=== PATIENT | male | born 1995 | race Caucasian/White ===

== ENCOUNTER → 2021-10-14 13:42 | Outpatient (BNVA) | payer MEDICAID, SELFPAY | PROVIDERS: Visit Provider Nurse Practitioner Family | DX: M25.512 Pain in left shoulder (principal); G89.29 Other chronic pain; E78.5 Hyperlipidemia, unspecified | CPT/HCPCS: 73030 ==

== ENCOUNTER 2023-08-06 13:06 | Emergency (ER) | payer MEDICAID, SELFPAY ==
[2023-08-06 13:07] VITALS: BMI 29.8
[2023-08-06 13:10] VITALS: BP 151/89; PULSE 78; RESP 16; TEMP 36.5; O2SAT 99
--- NOTE | 2023-08-06 14:00 | W.ED.EXTPRO ---
HPI - Extremity Problem General: Chief complaint: Extremity Injury, Upper Stated complaint: LEFT SHOULDER PAIN S/P FALL Time Seen by Provider: 08/06/23 13:16 Source: patient and family Mode of arrival: EMS Limitations: no limitations History of Present Illness: This patient fell on his left arm. He apparently was attempting to break up 2 dogs who were fighting and had dog in each arm and then stumbled and fell landing on his left arm and shoulder. He states it hurts to move his arm in any direction. There was no head injury and no other injury claim by the patient at this time. He is right-handed. Otherwise in good health. MD Complaint: extremity pain Location: left and upper extremity Associated symptoms: Reports no associated symptoms; Deny chest pain, fever(s) or rash Review of Systems Const: Denies: fever(s) or chills ENMT: Denies: throat pain or odynophagia Card: Denies: chest pain, palpitations, syncope or pre-syncope Resp: Denies: dyspnea, productive cough or non-productive cough GI: Denies: abdominal pain, nausea or vomiting Musc: Reports: extremity pain; Denies: neck pain or back pain Skin/Breast: Denies: rash Neuro: Denies: headache(s), numbness in extremities or weakness in extremities PFSH ED PFSH: Social History Smoking and tobacco/nicotine status: never used tobacco/nicotine Second hand smoke exposure: No Alcohol intake: never Substance/Drug Use: never Adopted: No Caregiver/support person: No Lives independently: Yes Household members: spouse Housing: House Marital status: Highest education level completed: High School Graduate service: No Current occupational status: employed Physical Exam Narrative: EXAM NARRATIVE: Patient's appears to be slightly uncomfortable but is cooperative and answers questions in an appropriate fashion. Const: COMMON NORMALS: average body habitus, patient oriented x3 and alert GENERAL APPEARANCE: cooperative HENMT: COMMON NORMALS: normocephalic, atraumatic and Normal nasal mucous membranes and turbinates present HEAD & SCALP: normocephalic and atraumatic NOSE: Normal nasal mucous membranes and turbinates present Eye: COMMON NORMALS: Equal, round and reactive pupils present, EOMs intact bilaterally and conjunctivae normal CONJUNCTIVA: Yes conjunctivae normal PUPIL: Yes Equal, round and reactive pupils present Neck/C-Spine: COMMON NORMALS: full ROM CERVICAL SPINE: Yes cervical ROM normal, No Cervical spine tenderness, No step off deformity, No Paracervical muscle tenderness and No Paracervical spasm Chest: COMMONS NORMALS: normal inspection of the chest Resp: COMMON NORMALS: normal respiratory effort, No retractions and clear to auscultation bilaterally EFFORT & INSPECTION: Yes able to speak in complete sentences AUSCULTATION: clear to auscultation bilaterally Cardio: COMMON NORMALS: regular rate, regular rhythm and Peripheral pulses 2+ throughout RATE: regular rate RHYTHM: regular rhythm PERIPHERAL PULSES: Peripheral pulses 2+ throughout : COMMON NORMALS: Yes no CVA tenderness BLADDER/KIDNEY EXAM: Yes no CVA tenderness Back/Pelvis: COMMON NORMALS: no CVA tenderness, thoracic and lumbar spine normal to inspection, no thoracic nor lumbar tenderness and thoraco-lumbar ROM normal Extremity: LEFT UPPER EXTREMITY: Yes shoulder joint and Yes upper arm OTHER: Patient maintains his left arm and shoulder and internal rotated abducted position of comfort. Palpation reveals some step-off at the lateral shoulder over the glenohumeral region there is no deformity distally and he is neurovascular intact distally. There is no anesthesia over the lateral shoulder or humerus. EXTREMITY IMAGE (FRONT): 1. Area of tenderness no deformity. No ecchymosis no skin abrasions Neuro: COMMON NORMALS: patient oriented x3, no focal motor deficits and no sensory deficits noted SENSORIUM/ORIENTATION: Yes alert Psych: COMMON NORMALS: mental status grossly normal Skin: COMMON NORMALS: no rashes or lesions noted, no wounds and turgor normal GENERAL SKIN EXAM: no rashes or lesions noted and turgor normal Procedures Jaw Reduction Time Out Performed: Yes Pre-Treatment Medications Used: opioids Technique used: other (External rotation and adduction) Reduction successful: Yes Patient Tolerated Procedure: well Complications: none Additional Comments: Postreduction x-ray revealed no evidence of occult fracture Hill-Sachs deformity etc. Procedural Sedation Indication: fracture/dislocation reduction Presedation Evaluation: Patient has no history of reactive airway disease or other cardiopulmonary conditions. ASA Class: I Preparation: cardiac rehabilitation specialist applied, pulse oximeter and supplemental O2 applied IV Propofol dose (mg): 42.5 Patient Tolerated Procedure: well Complications: none Additional Comments: Patient recovered back to presedation level of consciousness very quickly. Course Reevaluation(s): Reevaluation #1: Patient had an anterior shoulder dislocation both clinically and radiographically. The patient underwent a procedural sedation with reduction of his left shoulder. Postreduction films showed anatomic reduction. He clinically was stable. There was some question on initial shoulder films about inferior glenoid Bankart lesion. Postreduction film did not reveal any concerns by me however we will schedule a follow-up with orthopedics for repeat films and review. Time: 16:08 Vital Signs: Vital signs: Vital Signs Temperature 97.7 F 08/06/23 13:10 Pulse Rate 79 08/06/23 15:44 Respiratory Rate 18 08/06/23 15:44 Blood Pressure 119/65 08/06/23 15:44 Pulse Oximetry 98 08/06/23 15:44 Oxygen Delivery Me thod Nasal Cannula 08/06/23 15:33 MDM - Extremity (Nontraumatic) Medical Decision Making This patient presents to the emergency department via EMS after falling on his left side and injuring his left shoulder. No other injuries to include head trauma etc. He had pain with movement of his left arm above resting position. Clinical examination revealed tenderness over the anterior shoulder with some step-off on the left glenohumeral region of the lateral shoulder. No deformity of the distal humerus forearm or hand were noted. No cervical spine tenderness no evidence of other injury. Radiographs confirmed an anterior dislocation without any evidence of fracture initially on the left humerus. Patient underwent procedural sedation and using external rotation and some lateral countertraction easily reduced to an anatomical position. There was some question on 1 view of the prereduction films about a Bankart lesion however postreduction films did not reveal any evidence of inferior glenoid fracture to my eye by single view but the patient will be followed up by orthopedics for review and further care. He has been placed in a sling with post reduction instructions given to both he and spouse. Stable at this time. Lab Data I reviewed the patient's lab results. Radiology Impressions Humerus X-Ray 08/06/23 14:03 IMPRESSION: 1. No visible fracture. 2. Anterior inferior shoulder dislocation. XR interpretation done by ED provider, pending radiology final review Discharge Plan Discharge Patient Disposition: Home Clinical Impression: Anterior dislocation of left shoulder Qualifiers: Encounter type: initial encounter Qualified Code(s): S43.015A - Anterior dislocation of left humerus, initial encounter Condition: Stable Prescriptions: New hydrocodone-acetaminophen 7.5-325 mg tablet 1 tab PO TID PRN (Reason: pain) Qty: 14 0RF No Action Allergy Relief (cetirizine) 10 mg Tablet 10 mg PO DAILY PRN (Reason: allergies) Discharge Orders: Discharge ED (Routine); Ordered 08/06/23 Ordered By: Peter El Discharge Diet: Usual diet Discharge Activity: Limit activity as instructed Patient Instructions: Opioid Safety, Pain Management Activity Restrictions/Additional Instructions: As we discussed you should use your sling predominantly to keep your left arm rested for the next 2 weeks. You may remove your arm from the sling to do activities but should not raise your arm to chest level or higher. You may use ice pack to help with pain and swelling as well as a pain medication with as prescribed. We have made a follow-up appointment for you at the orthopedic surgery office to reevaluate you and recheck your x-rays. You should be contacted in the next few days for a follow-up appointment. If it anytime you have increasing pain or any other concerns you are welcome to return to the emergency department for reevaluation. Coding Level of Care Code ED Nursing Agency Manager for Mani Medina
--- NOTE | 2023-08-06 14:03 | XRR_ITS ---
PROCEDURE INFORMATION: Exam: XR Left Humerus Exam date and time: 08/06/2023 2:08 PM Age: 28 years old Clinical indication: Injury or trauma; Fall; Other: Pain TECHNIQUE: Imaging protocol: Radiologic exam of the left humerus. Views: 2 or more views. COMPARISON: CR (CHEST, ) 08/06/2023 2:08 PM FINDINGS: Bones/joints: There is anterior inferior dislocation of the humeral head relative to the glenoid. The elbow is unremarkable. AC joint alignment is normal. No acute fracture. Soft tissues: Visible soft tissues are unremarkable. XR/[place] [id number] IMPRESSION: 1. No visible fracture. 2. Anterior inferior shoulder dislocation.
--- NOTE | 2023-08-06 14:03 | XRR_ITS ---
PROCEDURE INFORMATION: Exam: XR Left Shoulder Exam date and time: 08/06/2023 2:08 PM Age: 28 years old Clinical indication: Injury or trauma; Fall; Other: Pain TECHNIQUE: Imaging protocol: Radiologic exam of the left shoulder. Views: 2 or more views. COMPARISON: CR XR shoulder LT min 2V* [id number] 10/14/2021 1:47 PM FINDINGS: Bones/joints: There is anterior inferior dislocation of the humeral head relative to the glenoid. Subtle irregularity of the anterior inferior glenoid is suspected on series 1001 image a 1001. The AC joint is normal. Soft tissues: Visible soft tissues are unremarkable. XR/XR shoulder LT min 2V* [id number] IMPRESSION: 1. Anterior inferior dislocation of the left shoulder. 2. Possible anterior inferior glenoid (Bankart) fracture. Recommend axillary views post reduction to assess the glenoid.
[2023-08-06] MEDS: morphine 4 mg/mL SDV 1 mL IVP (14:08)
[2023-08-06 15:15] VITALS: BP 125/69; PULSE 78; RESP 18; O2SAT 97
[2023-08-06 15:33] VITALS: BP 137/76; PULSE 71; RESP 18; O2SAT 100
[2023-08-06] MEDS: propofol 10 mg/mL SDV 20 mL 42 MG IVP (15:38)
--- NOTE | 2023-08-06 15:40 | XRR_ITS ---
PROCEDURE INFORMATION: Exam: XR Left Shoulder Exam date and time: 08/06/2023 3:43 PM Age: 28 years old Clinical indication: Pain; Patient HX: Post reduction left shoulder TECHNIQUE: Imaging protocol: Radiologic exam of the left shoulder. Views: 1 view. COMPARISON: CR (CHEST, ) 08/06/2023 2:08 PM FINDINGS: Bones/joints: Single view of the left shoulder demonstrates satisfactory alignment post reduction. No fracture is visible. Soft tissues: Visible soft tissues are unremarkable. XR/XR shoulder LT 1V [id number] IMPRESSION: 1. Satisfactory alignment post reduction. 2. No visible fracture. Assessment for glenoid fracture is limited on the provided view.
[2023-08-06 15:44] VITALS: BP 119/65; PULSE 79; RESP 18; O2SAT 98
[2023-08-06] MEDS: HYDROcodone-acetaminophen 7.5-325 mg Tablet 1 TAB PO (16:00)
[2023-08-06 16:10] VITALS: BP 117/64; PULSE 77; RESP 18; O2SAT 99
--- NOTE | 2023-08-08 07:54 | DCPLANNER ---
A message was sent to ortho on 08/08/23 at 0754. [facility] to contact patient for appt
== END 2023-08-06 16:27 | disposition home or self-care (01) ==
PROVIDERS: Emergency Provider Emergency Medicine
DX: S43.015A Anterior dislocation of left humerus, initial encounter (principal); W01.0XXA Fall on same level from slipping, tripping and stumbling without subsequent striking against object, initial encounter
CPT/HCPCS: 23650; 73020; 73030; 73060; 96374; 99152; 99285; J2270; J2704

== ENCOUNTER 2023-08-17 14:04 | Outpatient (CLI) | payer MEDICAID, SELFPAY ==
--- NOTE | 2023-08-17 14:30 | MR_ITS ---
WS: [id number] MRI LEFT SHOULDER NONCONTRAST TECHNIQUE: Sagittal T2, coronal T1, T2 and proton density imaging. Axial gradient PDE imaging. CLINICAL INFORMATION: left shoulder dislocation COMPARISON: Radiograph 08/06/2023 FINDINGS: Normal AC joint. Mild downsloping the acromion. Slight subacromial spurring. Small joint effusion. No ndisplaced Hill-Sachs impaction fracture with concave deformity and edema from recent anterior disloc ation. Nondisplaced fracture involving the anterior inferior glenoid from recent dislocation with ass ociated edema compatible with bony Bankart lesion. Associated tear of the anterior inferior labrum. B iceps labral anchor appears intact. Normal supraspinatus and infraspinatus. Normal teres minor. Normal subscapularis. Biceps tendon appea rs intact within the bicipital groove. Transverse ligament and subscapularis tendons appear intact. M iddle glenohumeral ligament appears intact. IMPRESSION: 1. Hill-Sachs impaction fracture with concave deformity and associated edema from recent anterior di slocation. 2. Contusion with a small amount of edema and tiny nondisplaced anterior inferior glenoid rim fractu re compatible with bony Bankart lesion from recent dislocation and associated labral tear. 3. Small joint effusion. 4. Rotator cuff is intact. 5. Biceps labral anchor appears intact. 6. Biceps tendon appears intact within the bicipital groove.
== END 2023-08-17 14:05 | disposition home or self-care (01) ==
LOC: RAD 14:04
PROVIDERS: Visit Provider Orthopaedic Surgery
DX: S42.295A Other nondisplaced fracture of upper end of left humerus, initial encounter for closed fracture (principal); S42.145A Nondisplaced fracture of glenoid cavity of scapula, left shoulder, initial encounter for closed fracture; X58.XXXA Exposure to other specified factors, initial encounter
CPT/HCPCS: 73221

== ENCOUNTER 2023-09-07 13:04 | Day surgery (SDC) | payer MEDICAID, SELFPAY ==
[2023-09-07] VITALS (11 sets, daily range): BP systolic 105–133; BP diastolic 64–83; PULSE 64–83; RESP 12–21; TEMP 36.1–36.4; O2SAT 97–100; BMI 29.8
[2023-09-07] MEDS: sodium chloride 0.9% 1,000 ML 30 ML IV (14:22)
[2023-09-07] MEDS: scopolamine 1.5 Patch 1 PATCH TRANSDERMA (14:23)
[2023-09-07] MEDS: ketorolac 30 mg/mL INJ IVP (14:23)
[2023-09-07] MEDS: acetaminophen 1,000 MG/100 ML PIGGYBACK 400 MG IV (14:24)
--- NOTE | 2023-09-07 14:29 | ANES.PREANE2 ---
Pre-Anesthetic Assessment Height/Weight: Height 1.68 m Temp Pulse Resp BP Pulse Ox O2 Del Method 97.5 F L 68 16 124/73 98 Room Air 09/07/23 13:52 09/07/23 13:52 09/07/23 13:52 09/07/23 13:52 09/07/23 13:52 09/07/23 13:57 Operation Date: 09/07/23 14:00 Proposed Procedures p Shoulder Arthroscopy/ left shoulder diagnostic and surgical arthroscopy with labral repair and possible remplissage of Hill-Sachs deformity ,(Left) - Barry Catrina, DO Familial anesthetic complications: none Was Beta Martha taken within 24 hours: N/A Was Clonidine taken within 24 hours: N/A Last intake: Intake Last Liquid Date 09/06/23 Last Liquid Time 22:00 Last Solid Date 09/06/23 Last Solid Time 22:00 Social Tobacco (chews) and No alcohol Exam alert, oriented x 3, clear to auscultation bilaterally and regular rate & rhythm Airway Submandibular: within normal limits Cervical ROM: within normal limits Mallampati: Class II Dentition: chipped Comments: Comments: Very poor dentition, multiple caries and chips Anesthetic Plan ASA status: 2 Anesthesia: General and Regional (specify below) (Left interscalene nerve blk) Medications/Allergies Home Medications Medication Instructions Recorded Confirmed Last Taken Type cetirizine 10 mg tablet (Allergy 10 mg PO DAILY PRN allergies 08/06/23 09/06/23 1 Day Ago History Relief (cetirizine)) ~09/05/23 hydrocodone 7.5 mg-acetaminophen 1 tab PO Q8H PRN pain 14 days #30 08/11/23 09/06/23 1 Day Ago Rx 325 mg tablet tabs ~09/05/23 Allergies Allergy/AdvReac Type Severity Reaction Status Date / Time amoxicillin Allergy Intermediate Unknown Verified 09/06/23 15:50 Current Medications Generic Name Dose Route Start Last Admin Trade Name Freq PRN Reason Stop Dose Admin Sodium Chloride 1,000 mls @ 30 mls/hr 09/07/23 13:45 09/07/23 14:22 Sodium Chloride 0.9% IV 09/08/23 13:44 30 mls/hr .Q24H SOFIYA Administration PFSH Anesthesia Social History Smoking and tobacco/nicotine status: current every day tobacco/nicotine user smokeless tobacco Second hand smoke exposure: No Alcohol intake: never Substance/Drug Use: never Adopted: No Caregiver/support person: No Lives independently: Yes Household members: spouse Housing: House Marital status: Highest education level completed: High School Graduate service: No Current occupational status: employed Data Anesthesia Cardiac Studies: No Data to Display
[2023-09-07] MEDS: HYDROmorphone 1 mg/mL INJ 1 mL 0.5 MG IVP (14:40)
--- NOTE | 2023-09-07 15:02 | ANES.PROC ---
Anesthesia Procedures Procedure/Date: 09/07/23 Nerve Block ^: Nerve Block 1: Main Anesthesia: general anesthesia Time Out Performed: Yes Consent: requested by attending/covering physician, from patient, risks and benefits reviewed and patient agrees to proceed Nerve block location: interscalene (left) Anesthesia monitors applied: pulse oximetry, EKG, BP cuff and oxygen Nerve block position: semi sitting Anesthetic Used: ropivicaine 0.5% Amount of anesthesia used (mL): 30 Ultrasound used to: recognize landmarks and visualize and ID brachial plexus Nerve Stimulator Used?: No Interscalene/Femoral BLK: 2 stimuplex 22 g needle used for position and inplane approach Injection: neg aspiration of heme Patient Tolerated Procedure: well Complications: none
--- NOTE | 2023-09-07 16:47 | W.PM.OPSUD ---
Surgery/Procedure H&P Update DATE OF PROCEDURE: September 07, 2023 DATE H&P PERFORMED: 08/26/23 H&P UPDATE INFORMATION: I have reviewed H&P completed within last 30 days, I have examined patient prior to procedure and No changes to prior documentation PREOP DIAGNOSIS: Left shoulder labral tear and Hill-Sachs deformity PRIMARY INDICATION FOR PROCEDURE: Left shoulder labral tear and Hill-Sachs deformity PLANNED PROCEDURE: Operation Date: 09/07/23 14:00 Proposed Procedures p Shoulder Arthroscopy/ left shoulder diagnostic and surgical arthroscopy with labral repair and possible remplissage of Hill-Sachs deformity ,(Left) - Barry Fritz DO
[2023-09-07] MEDS: ceFAZolin 2,000 MG in sodium chloride 0.9% (plus) 50 ML 100 MG IV (17:05)
[2023-09-07] MEDS: EPINEPHrine 1 mg/mL INJ 2 MG XX (18:05)
--- NOTE | 2023-09-07 19:16 | SUR.OPER ---
1915 PT FAMILY UPDATED BY SAMANTHA LUCERO VIA WAITING ROOM
--- NOTE | 2023-09-07 20:00 | SUR.OPER ---
2000 UPDATED FAMILY VIA WAITING AREA BY ROSE LUCERO
--- NOTE | 2023-09-07 20:24 | P.BOP_ITS ---
Date of Procedure: 09/07/2023 Surgeon: Barry Fritz DO Accounts Payable Technician(s): DELMA Hays Procedure(s) performed: Left shoulder diagnostic and surgical arthroscopy with anterior labral repair Left shoulder diagnostic and surgical arthroscopy with SLAP repair Left shoulder diagnostic and surgical arthroscopy with subacromial bursectomy Left shoulder diagnostic and surgical arthroscopy with multiple attempted remplissage's but failed anchor fixation Findings of the procedure(s): Patient was found to have a complex anterior labral tear as well as a SLAP tear. Underwent repair of this without any issues or complications. Went to perform patient's remplissage on smaller Hill-Sachs deformity for added stability and fixation unfortunately multiple attempts were made and failure of anchor fixation due to to the soft bone at the humeral head at the site in order to not cause more damage I then subsequently removed the anchors and this was subsequently left alone and allow the bone to heal. Estimated blood loss: 10 mL Specimen(s) removed: None Post-operative diagnosis: Left shoulder anterior labral tear, SLAP tear, subacromial bursitis as well as small Hill-Sachs deformity
--- NOTE | 2023-09-07 20:28 | P.OP_ITS ---
Operative Report Date of procedure: September 07, 2023 Surgeon: Barry Fritz DO Procedure: Preoperative diagnosis: Left shoulder anterior dislocation with instability and labral tear, Hill-Sachs lesion post-op diagnosis:? Left?shoulder?anterior labral tear Left?shoulder SLAP tear Left?shoulder?subacromial bursitis/impingement Left shoulder small hill-sachs deformity Procedure done: Left shoulder diagnostic and surgical arthroscopy with anterior labral repair Left shoulder diagnostic and surgical arthroscopy with SLAP repair Left shoulder diagnostic and surgical arthroscopy with subacromial bursectomy Surgeon: Barry Fritz DO Estimated blood loss: [10 ]mL IV fluids: See anesthesia record Implants: Arthrex 1.8 mm knotless fiber tack soft tissue anchor (x7) 2 loss fixation and w ere removed Arthrex 4.75 bio composite swivel lock self punching anchor subsequently lost fixation and removed Arthrex 4.75 bio composite swivel lock Complications: None Condition: stable Disposition: same day Brief History: Patient been seen and worked up in the outpatient setting for Left?shoulder?pain after recent dislocation.? Pt had an MRI which showed findings below.? He has had issues with his left shoulder in the past he is not sure of instability rotator cuff injury. This point in time given his young age and possibility increased of recurrence and the fact that he uses his shoulder and has had issues with this already in the past he like to get this addressed surgically. We talked about treatment options far as nonoperative and operative intervention..? We talked about risk benefits complication alternatives surgical nonsurgical treatment options.? Understanding risk of surgery pt agrees to proceed with surgical intervention.? All questions have been answered at this time.? Patient elects proceed with surgery and consent obtained in office. IMPRESSION: 1. Hill-Sachs impaction fracture with concave deformity and associated edema from recent anterior dislocation. 2. Contusion with a small amount of edema and tiny nondisplaced anterior inferior glenoid rim fracture compatible with bony Bankart lesion from recent dislocation and associated labral tear. 3. Small joint effusion. 4. Rotator cuff is intact. 5. Biceps labral anchor appears intact. 6. Biceps tendon appears intact within the bicipital groove. Procedure: Patient seen evaluated in the preoperative holding area.? Consent reviewed and signed with patient.? Once again reviewed patient's MRI results as well as? planned surgical intervention.? Correct extremity marked.? Patient seen evaluated by anesthesia department received regional anesthesia.? Once ready for surgery was taken back to the operative suite.? Patient then subsequently underwent anesthesia per the anesthesia department was transported onto the OR table.? Patient was then placed into a lateral decubitus position with a beanbag and was appropriately secured to the bed.? All bony prominences well-padded.? Patient then had the Left upper extremity was then prepped and draped in standard orthopedic fashion.? Patient received appropriate preoperative antibiotics.? Final timeout performed. The Left upper extremity was then held in hanging from traction utilizing sterile technique.? Next started with standard diagnostic and surgical arthroscopy with posterior portal position introduced arthroscope into the glenohumeral joint.? Visualized the glenohumeral joint I then introduced a spinal needle within the rotator cuff interval to confirm appropriate anterior portal placement.? Once this was confirmed I then made my small incision and then introduced my arthroscopic shaver into the glenohumeral joint.? 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 After debriding the joint with i rrigation I was then able to identify patient's injury. Patient was found to have a large tear of the anterior labrum down into the inferior aspect roughly at 7:00 on the glenoid face this tore all the way up into the SLAP tear of the labrum. As result the labrum had instability superiorly overall the bicep tendon appeared to be healthy and at this point time I did not feel necessary for any type of bicep tenodesis and plan for repair of the anterior labrum as well as the SLAP tear. I then visualized the rotator cuff which was intact with a negative escape bubble sign. The axillary pouch was then identified no loose bodies were noted. The posterior labrum was intact. I then visualized the superior posterior aspect of the labrum were small Hill-Sachs deformity was formed feel this could be optimized with a remplissage in hopes for lowering rate of instability recurrence. As result plan was for an anterior labral repair SLAP repair as well as remplissage. Next I evaluated the subscapularis tendon which was intact and no evidence of tear. At this point I established my anterior portals for the anterior and superior labral repair. I then utilized a spinal needle to create a accessory anterior portal just off the subscapularis to have appropriate trajectory inferiorly along the glenoid and was able to use a straight faced drill guide. I then selected to use given patient's appropriate bone stock 1.8 mm knotless fiber tack soft tissue suture anchors with Arthrex with knotless mechanism. Prior to the repair I then subsequently utilized a arthroscopic periosteal elevator and elevated the residual labrum inferiorly and anteriorly. I then utilized an arthroscopic shaver to debride the glenoid face as well as a rasp to stimulate a roughened border to have appropriate healing. It was noted patient had fairly insufficient and a very thin wispy anterior glenoid and as a result plan was to utilize a portion of his anterior capsule to bring this up as an appropriate bumper as he had such insufficient labral only tissue. At the anterior to superior junction the medial glenohumeral ligament was thickened and anterior to the subscapularis tendon incorporating into the capsule this was the only tissue in this area and as result this part of the capsule as well as part of the medial glenohumeral ligament was the only tissue available for repair here. As result I subsequently started inferiorly and utilizing the 1.8 knotless fiber tack soft tissue suture anchors I subsequently utilized the drill guide to get this an appropriate face of the glenoid this is subsequently drilled and the soft tissue anchor was then punched I then utilized the lasso and utilizing a 2 portal technique shuttled my lasso with once again care grasping inferior capsule with care keeping just the capsule and not to deeper bites near the axillary nerve in this area and incorporated this into the insufficient but labral tear this was then subsequently shuttled my passing stitch and the knotless mechanism was then created, this was then cinched down and had appropriate bolstering of the anterior labrum and inferior capsule inferiorly and I was satisfied with this I then docked the left over suture out my other anchor with plan for later tensioning once the labral repair is finished with all the other anchors I subsequently did this fashion 3 more times marching along the anterior labrum with 1 of these again as stated prior had to incorporate some of the anterior capsule and medial glenohumeral ligament as this was the only area of actual tissue to bring up for the labral repair these were all appropriately tensioned and then subsequently placed an additional 1 posterior on the labrum to secure the SLAP tear posteriorly as I had already secured it anteriorly. All these stitches were then appropriately tensioned again the knotless mechanism worked appropriately and had excellent bumper ring the fact and securing of the labrum all arthroscopic sutures excess was then cut with an arthroscopic suture cutter. This completed the anterior labrum and SLAP repair. Next I then evaluated the remplissage and then plan to utilize to 1.8 mm knotless fiber tack soft tissue anchors. Plan was used the knotless mechanism to tension in mattress fashion in the subacromial space and then toggle this down and and secure a remplissage of the infra and supraspinatus junction to fill in patient's small Hill-Sachs deformity. I then subsequently switched my camera to the anterior and visualized posteriorly. I then utilizing the same drill guides made 2 small incisions after utilizing a spinal needle to have appropriate trajectory these were then subsequently punched drilled and anchors were then subsequently set. I then placed 2 plastic red tubes down the suture into the subacromial space and then subsequently moved into the subacromial space with an arthroscopic visualization posteriorly and then established my lateral working portal with the thermal wand and did a standard bursectomy of the left shoulder subacromial space this point the rotator cuff was intact and no further workup was needed in the subacromial space and I utilized arthroscopic shaver and appropriately debrided till I found and identified the red tubes and identified my suture. I then switched the camera to the lateral position utilizing my suture grasper grasped the appropriate splicing stitches on each of the anchors in order to create the double mattress stitch these were subsequently passed and while tensioning this had excellent visualization of this bring it down under my final tension the suture anchors ripped out and failed its fixation within the humeral head. I then subsequently utilized an arthroscopic suture grasper and grasped and removed the suture anchor in its suture to its entirety. I then next attempted to place an Arthrex 4.75 loaded swivel lock with suture tape this was then punched in that same area of the Hill-Sachs with plan for just 1 simple mattress stitch to tie this down the suture anchor was then punched and then secured had appropriate fixation I then subsequently used a BirdBeak and passed and created a soft tissue bridge of the rotator cuff posteriorly over the Hill-Sachs deformity subsequently utilized the arthroscopic knot pusher and tied this down and the suture failed. Next for third and final attempt I utilized the Arthrex 4.75 self punching anchor this was subsequently self punched had initial fixation and then I subsequently once again utilized the BirdBeak suture grasper to grasp in 2 different locations with plan to tie this in the subacromial space with arthroscopic suture attire these were then grasped out of the same portal site tied and well tying the anchor subsequently pulled out given patient's bone was soft at this point in time there was no further footprint and the Hill-Sachs deformity for me to secure any form of anchor as this had previously failed 3 times in order for me not to cause any more harm to the patient I had to forego doing the remplissage procedure. This completed the surgery.? All fluid was suctioned from the?shoulder.? All instruments were removed.? The lateral incision was then closed with nylon stitches.? As well as the portal sites closed with portal nylon stitches.? Xeroform 4 x 4's ABD and tape was then applied to the Left?shoulder?and was placed into a?shoulder?abduction pillow sling for rotator cuff repair.? Patient was then awakened from anesthesia and then taken back to PACU in stable condition.? Patient tolerated procedure without any issues. Disposition: Patient taken back in stable condition recovering well.? Dressings on in place clean dry and intact.? Will be nonweightbearing to the Left upper extremity.? Follow labral repair protocol.? Patient to follow-up with me in the office in 2 weeks.? Patient will receive appropriate discharge instruction as well as pain medication postoperatively.? All questions answered.? We will contact the office for any questions or concerns.
--- NOTE | 2023-09-08 07:26 | ANE.PACU2 ---
Inpatient post-anesthesia follow up: Airway intact: Yes Vital signs: Temperature 97 F Pulse Rate 68 Respiratory Rate 18 Blood Pressure 118/72 Pulse Oximetry 99 Oxygen Delivery Me thod Room Air Oxygen Flow Rate Fraction of Inspir ed Oxygen Hydration adequate: Yes Nausea and vomiting: No Pain level: 1 Mental status: Baseline
== END 2023-09-07 22:03 | disposition home or self-care (01) ==
PROVIDERS: Visit Provider Student in an Organized Health Care Education/Training Program
PROC: (CPT 29805; principal; 2023-09-07 13:50)
DX: S43.432A Superior glenoid labrum lesion of left shoulder, initial encounter (principal); M25.812 Other specified joint disorders, left shoulder; S42.292A Other displaced fracture of upper end of left humerus, initial encounter for closed fracture; W19.XXXA Unspecified fall, initial encounter; F17.220 Nicotine dependence, chewing tobacco, uncomplicated
CPT/HCPCS: 29807; 29826; C1713; J0131; J0171; J0690; J1100; J1170; J1885; J2405; J2704; J2795; J3010; J3490; J7030

== ENCOUNTER 2023-11-07 06:00 | Outpatient (RCR) | payer MEDICAID, SELFPAY | END 2023-11-27 23:59 | disposition home or self-care (01) | LOC: APT 06:00 | PROVIDERS: Visit Provider Student in an Organized Health Care Education/Training Program | DX: Z98.890 Other specified postprocedural states (principal) | CPT/HCPCS: 97110; 97161 ==

== ENCOUNTER 2023-11-28 06:00 | Outpatient (RCR) | payer MEDICAID, SELFPAY | END 2023-12-28 23:59 | disposition home or self-care (01) | LOC: APT 06:00 | PROVIDERS: Visit Provider Student in an Organized Health Care Education/Training Program | DX: Z98.890 Other specified postprocedural states (principal) | CPT/HCPCS: 97110 ==

== ENCOUNTER 2023-12-29 06:00 | Outpatient (RCR) | payer MEDICAID, SELFPAY | END 2024-01-28 23:59 | disposition home or self-care (01) | LOC: APT 06:00 | PROVIDERS: Visit Provider Student in an Organized Health Care Education/Training Program | DX: Z98.890 Other specified postprocedural states (principal) | CPT/HCPCS: 97110 ==

== ENCOUNTER 2024-01-29 06:00 | Outpatient (RCR) | payer MEDICAID, SELFPAY | END 2024-02-27 23:59 | disposition home or self-care (01) | LOC: APT 06:00 | PROVIDERS: Visit Provider Student in an Organized Health Care Education/Training Program | DX: Z98.890 Other specified postprocedural states (principal) | CPT/HCPCS: 97110 ==